=== PATIENT | female | born 1990 | race Caucasian/White ===

== ENCOUNTER 2023-07-09 19:00 | Outpatient (CLI) | payer SELFPAY | END 2023-07-09 19:01 | disposition home or self-care (01) | PROVIDERS: Visit Provider Family Medicine | DX: F29 Unspecified psychosis not due to a substance or known physiological condition (principal) | CPT/HCPCS: A0425; A0429 ==

== ENCOUNTER 2023-07-09 19:49 | Observation (INO) | payer SELFPAY ==
[2023-07-09 20:00] VITALS: BP 118/78; PULSE 95; RESP 18; TEMP 36.7; O2SAT 99; BMI 21.9
--- NOTE | 2023-07-09 20:25 | ED_ITS ---
HPI - General Adult General Chief complaint: Psychiatric Problem/Disorder <Mary Winter MD - Last Filed: 07/09/23 23:46> Stated complaint: Mental health <Mary Winter MD - Last Filed: 07/09/23 23:46> Time Seen by Provider: 07/09/23 19:57 <Mary Winter MD - Last Filed: 07/09/23 23:46> Source: patient <Mary Winter MD - Last Filed: 07/09/23 23:46> Limitations: no limitations <Mary Winter MD - Last Filed: 07/09/23 23:46> History of Present Illness HPI narrative: Patient is a 32-year-old female comes into the ER today at the request of the police in her parents after her parents called the police and told them that she had attacked them. Patient tells me that this is lie and that she came here just to ?get them off my back?. She states that no one listens to her and that she gently touched her mother when she became upset at her. She states that she has multiple relationship problems with many people and that she continues to have relationship issues with her parents who she is currently living with. She also tells me that her parents are hiding her 2 children from her. She states that she is from her and living with her parents for the time being but it is temporary. She states that she is trying to move on with her life and her parents will let her. The patient tells me that she has no medical history, takes no medications and does not use any drugs. I did ask the patient what we could do for her in the ER today, she tells me that she is unsure. I offer for her to speak to [facility], she agrees to this. She does tell me that there is no risk of her harming other people or harming herself at this time. <Mary Winter MD - Last Filed: 07/09/23 23:46> Related Data Home medications: Home Medications Medication Instructions Recorded Confirmed No Known Home Medications 07/09/23 07/09/23 <Mary Winter MD - Last Filed: 07/09/23 23:46> Allergies/adverse reactions: Allergies Allergy/AdvReac Type Severity Reaction Status Date / Time No Known Drug Allergies Allergy Verified 07/09/23 20:02 <Mary Winter MD - Last Filed: 07/09/23 23:46> Review of Systems Status of ROS: Reports: 10 or more systems reviewed and unremarkable except as noted in History and below <Mary Winter MD - Last Filed: 07/09/23 23:46> [facility] Medical History: Medical History (Updated 07/09/23 @ 23:16 by Mary Winter MD) No significant past medical history <Mary Winter MD - Last Filed: 07/09/23 23:46> Surgical History: Surgical History (Updated 07/09/23 @ 20:56 by Klever Driscoll RN) No significant past surgical history <Mary Winter MD - Last Filed: 07/09/23 23:46> Social History: Social History What is your current living situation?: declined to answer Problems where you live: declined to answer Problems where you live details: NA In the past 12 months, utilities in danger of being shut off: declined to answer In past 12 months, lack of transportation kept you from medical appts, meetings, work, or getting things needed for daily living: declined to answer In the past 12 mos, have been you worried that your food would run out before you had money to buy more?: declined to answer In the past 12 mos, the food you bought just didn't last and you didn't have money to buy more?: declined to answer Highest level of school completed/degree received: Associate degree: occupational, technical, vocational program Smoking Status: Never smoker Second hand tobacco smoke exposure: No How often do you have a drink containing alcohol: never How often do you have six or more drinks on one occasion: Never AUDIT-C Alcohol total score: 0 Non-prescribed substance use: denies use Caffeine: Yes How often does anyone, including family, friends and others, physically hurt you : decline to answer How often does anyone, including family, friends and others, insult or talk down to you: decline to answer How often does anyone, including family, friends and others, threaten you with harm: decline to answer How often does anyone, including family, friends and others, scream or curse at you: decline to answer service: No <Mary Winter MD - Last Filed: 07/09/23 23:46> Exam Narrative: Exam Narrative: Well-nourished well-developed patient in no acute distress. Alert and oriented x3. Patient's affect is slightly flat. Mood is normal. Patient takes long corby ses when she speaks and often times does not finish her thoughts. Thoughts are disorganized. She repeats herself multiple times. HEENT: Normocephalic atraumatic. Pupils are equally round reactive to light. Extraocular muscles are intact. Conjunctivae are moist without any icterus noted. Moist mucous membranes. Patient is well groomed. Cardiovascular: Heart is regular rate. Lungs: Clear to auscultation bilaterally. Abdomen: Soft and nontender nondistended with normal bowel sounds. Extremities: Bilateral lower extremities are without edema. Skin: Well perfused without any obvious rashes. <Mary Winter MD - Last Filed: 07/09/23 23:46> Const: Vital Signs, click to edit/add: Vital Signs - 24 hr 07/12/23 11:48 Temperature 98.4 F Pulse Rate [Right Pulse Oximeter] 96 Respiratory Rate 16 Blood Pressure [Ri ght Upper Arm] 113/90 H Pulse Oximetry 98 Oxygen Delivery Me thod Room Air <Mary Winter MD - Last Filed: 07/09/23 23:46> Vital Signs, click to edit/add: Vital Signs - 24 hr 07/12/23 11:48 Temperature 98.4 F Pulse Rate [Right Pulse Oximeter] 96 Respiratory Rate 16 Blood Pressure [Ri ght Upper Arm] 113/90 H Pulse Oximetry 98 Oxygen Delivery Me thod Room Air <Tucker Berry DO - Last Filed: 07/10/23 07:47> Vital Signs, click to edit/add: Vital Signs - 24 hr 07/12/23 11:48 Temperature 98.4 F Pulse Rate [Right Pulse Oximeter] 96 Respiratory Rate 16 Blood Pressure [Ri ght Upper Arm] 113/90 H Pulse Oximetry 98 Oxygen Delivery Me thod Room Air <Mary Durham MD - Last Filed: 07/10/23 15:09> Vital Signs, click to edit/add: Vital Signs - 24 hr 07/12/23 11:48 Temperature 98.4 F Pulse Rate [Right Pulse Oximeter] 96 Respiratory Rate 16 Blood Pressure [Ri ght Upper Arm] 113/90 H Pulse Oximetry 98 Oxygen Delivery Me thod Room Air <Raz Dejesus MD - Last Filed: 07/12/23 23:37> Vital Signs, click to edit/add: Vital Signs - 24 hr 07/12/23 11:48 Temperature 98.4 F Pulse Rate [Right Pulse Oximeter] 96 Respiratory Rate 16 Blood Pressure [Ri ght Upper Arm] 113/90 H Pulse Oximetry 98 Oxygen Delivery Me thod Room Air <Joe Diaz MD - Last Filed: 07/13/23 18:08> Course Course ED Course: Dec assessment was done: Per ASHWIN patient had a similar visit in April of this year at [place] when her dad brought her in to be seen for psychiatric issues, unclear of what they were, she however left before an assessment was done. During this visit: ASHWIN did speak to patient and felt that she had disorganized thoughts and paranoia. And she is exhibiting psychotic symptoms such as de lusions, thought disorganization, agitation and aggression. ASHWIN also spoke to her parents who stated that she has been declining since November, and has been refusing help. Her decision making skills do seem quite impaired. They are recommending inpatient hospitalization at this time. At this time, did go back in the room to tell the patient the plan. Patient did not understand what we were trying to communicate. She did not understand what inpatient psychiatry was. She did understand that she would be transferred to another facility. She did not seem to understand the we did not have mental health capabilities here despite multiple different explanations and ways of explaining this to her. Also despite having nursing staff also explained this to her. She seemed to just have a very difficult time processing any information. However, she remained cooperative. <Mary Winter MD - Last Filed: 07/09/23 23:46> Reevaluation(s) Time of Reevaluation #1: 13:30 <Mary Durham MD - Last Filed: 07/10/23 15:09> Reevaluation #1: Have finally been able to get into patient's room. She was requesting to speak to the doctor. Due to the volume and the acuity, I have had no capacity to see her until now. We did review that she technically has not been placed on hold but it is felt that she is holdable should she try to leave, she has been here voluntarily to this point. She and I reviewed that it is felt that she is acutely psychotic, we briefly reviewed what this meant. She does not feel that to be true. She states she is said basically nothing here. I reviewed with her that perhaps she does need to expound on her symptoms and issues, I can have the telehealth really evaluate. She did not want to do that, stated that was completely uncomfortable yesterday. She did not like the computer, cannot really tell me why, does not answer me exactly why she did not want to do that. I reviewed with her that I have no in person way to be able to interview her for this. She did go on and move into a talking about how she would never go out of the house in the clothing she is, has not showered or bathed. I had to redirect her, unfortunately I need to keep seeing patients in the ER in do have many to take care of. I will reorder the telehealth and see if they have any different assessment today. I have encouraged her to work with the interviewer. <Mary Durham MD - Last Filed: 07/10/23 15:09> Reevaluation #2: 1700 on 07/10. Dr. Dejesus assumed care from Dr. Kasey forman at shift change. I re-evaluated the patient with her nurse Carin. Had approximately 30 minute conversation with the patient in her room. Patient was brought in by EMS yesterday apparently after having a verbal altercation with also possibly with some physical shopping and aggressive behavior with her father and her parents. She has been evaluated by [facility] and thought to be disorganized. She is holdable but has not been formally placed onto a 72 hour hold. [facility] is looking for an appropriate inpatient mental health facility. Unfortunately there have been no open beds yesterday, overnight, and so far through today. I re-evaluated the patient. She had a lot of questions about her care and what her options are. She was questioning whether not she is really on a hold. She also wonders if it is real ?right? for her to be here. She thinks her parents are truly at fault for what happened yesterday. She is well dressed and well groomed. Eyes are bright. Eye contact is appropriate. She says she is not having thoughts of suicide or self-harm. No hallucinations. Her thought process seemed very disorganized. When I ask her a simple question, ?what happened yesterday??? she is really not able to explain what happened. She starts talking about how she walked in and told her parents that she could not deal with it a name or. She then says that her father was showering. She does says there has been a lot of lies in the seat. She then says that there are issues that she will talk about. She has a long pause and looks away. She then says that she wanted know where her children were. She has a 5-year-old and a 13-year-old. She is very disorganized. She seems to be having tangential thoughts and almost flight of ideas. It is difficult to hold a cogent conversation with her. Although at spoke with her for about 30 minutes I am still not able to get a clear a sequence of events about what happened yesterday. I am also unable to determine why she is living with her parents or who does have custody of her children. She is just not able to think clearly enough to explain the events of her life for what happened yesterday. It is unclear whether she is pausing to intentionally withhold information or if her thoughts are just very tangential. I suspect disorganized thoughts. Speech is fluent. Enunciation is clear. She is not able to describe to me what her previous mental health diagnoses were. It sounds like she has had a lot of interactions with dental providers in the past, but she can not give me any information about that. She says that she would only feel comfortable talking to someone that she agrees with. She seems paranoid and guarded. I re-evaluated the situation. Her 72 hour hold form had been signed by Dr. Winter yesterday but not formally completed. Therefore does not look like she is legally/properly on a hold. I filled out my own 72 hour hold paperwork after evaluating her and the patient was started on 72 hour hold at 1745 on 07/10/2023. Based on my interaction with the patient she is having a mental health crisis. Her thoughts are very disorganized. She is paranoid and guarded. Although she is not physically aggressive here, she does not seem to be thinking clearly enough where she would be able to manage her affairs at home, care for herself. I think you be highly likely that sending her home with her parents would lead to more physical alterations and risk for further violence. <Raz Dejesus MD - Last Filed: 07/12/23 23:37> Reevaluation #3: Dr. Dejesus assumed care of this patient on a at 8:00 a.m. on 07/12. She remained stable on the day shift. Still with some disorganized thinking. No violent or aggressive behavior. She has been decline for admission at the [facility]. No open mental health beds in the [facility] that meet her needs. As she has been here in the ER now almost 70 hours, we have made arrangements with our hospitalist, Dr. Wood, to admit under obstetrics on the floor so that she can not board in a more quiet environment with a window in her own private bathroom. She remains on hold. She still will require likely transfer for inpatient mental health treatment. <Raz Dejesus MD - Last Filed: 07/12/23 23:37> Consultations Consultation #1: Tyrel completed his repeat telehealth evaluation. He thinks that she has possibly had a psychotic break. She is confused. He asked her multiple times during his interaction with her what she would like to have happen today and he could not get an answer from her. He recognized thought blocking, disorganized thinking and things are just not making sense to her. To me looking back in my conversation, it really seem like she isn't processing what I was saying. Dr. Berry whom covered overnight basically said the same thing, she was not able to take in any of the information or understand any of the information he was telling her. It is still recommended that she go inpatient. Tyrel noted patient to be suspicious and have paranoia as well. <Mary Durham MD - Last Filed: 07/10/23 15:09> Time: 15:05 <Mary Durham MD - Last Filed: 07/10/23 15:09> Vital Signs Vital signs: Initial Vital Signs Temperature 98.0 F 07/09/23 20:00 Temperature Source Temporal Artery Scan 07/09/23 20:00 Pulse Rate 95 07/09/23 20:00 Respiratory Rate 18 07/09/23 20:00 Blood Pressure 118/78 07/09/23 20:00 Blood Pressure Mean 91 07/09/23 20:00 Blood Pressure Position Sitting 07/09/23 20:00 Pulse Oximetry 99 07/09/23 20:00 Oxygen Delivery Method Room Air 07/09/23 20:00 Vital Signs Temperature 98.0 F 07/09/23 20:00 Pulse Rate 95 07/09/23 20:00 Respiratory Rate 18 07/09/23 20:00 Blood Pressure 118/78 07/09/23 20:00 Pulse Oximetry 99 07/09/23 20:00 Oxygen Delivery Method Room Air 07/09/23 20:00 Temperature 98.0 F 07/13/23 08:10 Pulse Rate 94 07/13/23 08:10 Respiratory Rate 18 07/13/23 08:10 Blood Pressure 124/94 H 07/13/23 08:10 Pulse Oximetry 97 07/13/23 08:10 Oxygen Delivery Method Room Air 07/13/23 08:10 <Mary Winter MD - Last Filed: 07/09/23 23:46> Initial Vital Signs Temperature 98.0 F 07/09/23 20:00 Temperature Source Temporal Artery Scan 07/09/23 20:00 Pulse Rate 95 07/09/23 20:00 Respiratory Rate 18 07/09/23 20:00 Blood Pressure 118/78 07/09/23 20:00 Blood Pressure Mean 91 07/09/23 20:00 Blood Pressure Position Sitting 07/09/23 20:00 Pulse Oximetry 99 07/09/23 20:00 Oxygen Delivery Method Room Air 07/09/23 20:00 Vital Signs Temperature 98.0 F 07/09/23 20:00 Pulse Rate 95 07/09/23 20:00 Respiratory Rate 18 07/09/23 20:00 Blood Pressure 118/78 07/09/23 20:00 Pulse Oximetry 99 07/09/23 20:00 Oxygen Delivery Method Room Air 07/09/23 20:00 Temperature 98.0 F 07/13/23 08:10 Pulse Rate 94 07/13/23 08:10 Respiratory Rate 18 07/13/23 08:10 Blood Pressure 124/94 H 07/13/23 08:10 Pulse Oximetry 97 07/13/23 08:10 Oxygen Delivery Method Room Air 07/13/23 08:10 <Tucker Berry DO - Last Filed: 07/10/23 07:47> Initial Vital Signs Temperature 98.0 F 07/09/23 20:00 Temperature Source Temporal Artery Scan 07/09/23 20:00 Pulse Rate 95 07/09/23 20:00 Respiratory Rate 18 07/09/23 20:00 Blood Pressure 118/78 07/09/23 20:00 Blood Pressure Mean 91 07/09/23 20:00 Blood Pressure Position Sitting 07/09/23 20:00 Pulse Oximetry 99 07/09/23 20:00 Oxygen Delivery Method Room Air 07/09/23 20:00 Vital Signs Temperature 98.0 F 07/09/23 20:00 Pulse Rate 95 07/09/23 20:00 Respiratory Rate 18 07/09/23 20:00 Blood Pressure 118/78 07/09/23 20:00 Pulse Oximetry 99 07/09/23 20:00 Oxygen Delivery Method Room Air 07/09/23 20:00 Temperature 98.0 F 07/13/23 08:10 Pulse Rate 94 07/13/23 08:10 Respiratory Rate 18 07/13/23 08:10 Blood Pressure 124/94 H 07/13/23 08:10 Pulse Oximetry 97 07/13/23 08:10 Oxygen Delivery Method Room Air 07/13/23 08:10 <Mary Durham MD - Last Filed: 07/10/23 15:09> Initial Vital Signs Temperature 98.0 F 07/09/23 20:00 Temperature Source Temporal Artery Scan 07/09/23 20:00 Pulse Rate 95 07/09/23 20:00 Respiratory Rate 18 07/09/23 20:00 Blood Pressure 118/78 07/09/23 20:00 Blood Pressure Mean 91 07/09/23 20:00 Blood Pressure Position Sitting 07/09/23 20:00 Pulse Oximetry 99 07/09/23 20:00 Oxygen Delivery Method Room Air 07/09/23 20:00 Vital Signs Temperature 98.0 F 07/09/23 20:00 Pulse Rate 95 07/09/23 20:00 Respiratory Rate 18 07/09/23 20:00 Blood Pressure 118/78 07/09/23 20:00 Pulse Oximetry 99 07/09/23 20:00 Oxygen Delivery Method Room Air 07/09/23 20:00 Temperature 98.0 F 07/13/23 08:10 Pulse Rate 94 07/13/23 08:10 Respiratory Rate 18 07/13/23 08:10 Blood Pressure 124/94 H 07/13/23 08:10 Pulse Oximetry 97 07/13/23 08:10 Oxygen Delivery Method Room Air 07/13/23 08:10 <Raz Dejesus MD - Last Filed: 07/12/23 23:37> Initial Vital Signs Temperature 98.0 F 07/09/23 20:00 Temperature Source Temporal Artery Scan 07/09/23 20:00 Pulse Rate 95 07/09/23 20:00 Respiratory Rate 18 07/09/23 20:00 Blood Pressure 118/78 07/09/23 20:00 Blood Pressure Mean 91 07/09/23 20:00 Blood Pressure Position Sitting 07/09/23 20:00 Pulse Oximetry 99 07/09/23 20:00 Oxygen Delivery Method Room Air 07/09/23 20:00 Vital Signs Temperature 98.0 F 07/09/23 20:00 Pulse Rate 95 07/09/23 20:00 Respiratory Rate 18 07/09/23 20:00 Blood Pressure 118/78 07/09/23 20:00 Pulse Oximetry 99 07/09/23 20:00 Oxygen Delivery Method Room Air 07/09/23 20:00 Temperature 98.0 F 07/13/23 08:10 Pulse Rate 94 07/13/23 08:10 Respiratory Rate 18 07/13/23 08:10 Blood Pressure 124/94 H 07/13/23 08:10 Pulse Oximetry 97 07/13/23 08:10 Oxygen Delivery Method Room Air 07/13/23 08:10 <Joe Diaz MD - Last Filed: 07/13/23 18:08> Medical Decision Making MDM Narrative Medical decision making narrative: 32-year-old female with paranoia, disorganized thoughts, psychosis. Pat ient will be transferred to inpatient psychiatric facility. <Mary Winter MD - Last Filed: 07/09/23 23:46> Patient was signed out to me pending transfer acceptance. By the end of my shift we have been unable to place her. We will continue to try in the morning. I did have to speak to her again during the night. She still is not understanding what is going on despite multiple attempts to explain it to her. <Tucker Berry DO - Last Filed: 07/10/23 07:47> Patient was signed out to me pending transfer acceptance. By the end of my shift we have been unable to place her. We will continue to try in the morning. I did have to speak to her again during the night. She still is not understanding what is going on despite multiple attempts to explain it to her. 07/11 ARISTEO --did go to visit with Ms. Galvin. She is very calm. Does have questions about the process here. Expresses concern that her story is not communicated accurately from provider to provider given the dizziness and the number of the people that are attending to her. Gently says that the message often seems unclear. She does not want to be accusatory and does not like conflict she notes. She may like to speak with patient advocate at some point to help her through the process here. She says has she had numerous questions that have since eval braided. She is given some paper and the [place] implements. She would like to return home to get a number of things that would be helpful in helping happen. She is concerned about having to do things that she may not be in agreement with. All of this is expressed thoughtfully, haltingly, partially. Given a blanket. Does not appear to need medication for anything at this time. <Joe Diaz MD - Last Filed: 07/13/23 18:08> Lab Data Labs: Lab Results 07/09/23 07/09/23 07/09/23 Range/Units 23:04 23:05 23:54 WBC 12.41 H (4.50-11.00) K/uL RBC 4.25 (4.00-5.20) m/uL Hgb 13.6 (12.0-16.0) gm/dL Hct 41.2 (33.0-51.0) % MCV 97 (80-100) fL MCH 32 (26-34) pg MCHC 33 (32-36) gm/dL RDW Coeff of Alexandra 11.9 (11.5-15.5) % Plt Count 272 (140-440) K/uL Neut % (Auto) 78.3 H (42.0-72.0) % Lymph % (Auto) 14.5 L (20-44) % [place] % (Auto) 6.0 (0.0-11.0) % Eos % (Auto) 0.0 (0.0-7.0) % Baso % (Auto) 0.5 (0.0-3.0) % Neut # (Auto) 9.70 H (1.7-7.0) K/uL Lymph # (Auto) 1.80 (0.90-2.90) K/uL [place] # (Auto) 0.70 (0.00-0.90) K/UL Eos # (Auto) 0.00 (0.00-0.50) K/uL Baso # (Auto) 0.10 (0.00-0.30) K/uL Abs Immat Gran (auto) 0.10 (0.00-0.30) K/uL Imm/Tot Granulo (auto) 0.7 % Sodium 139 (135-149) mmol/L Potassium 3.4 L (3.6-5.1) mmol/L Chloride 103 (96-114) mmol/L Carbon Dioxide 25 (20-32) mmol/L Anion Gap 11 (7-15) mEq/L BUN 8 (5-24) mg/dL Creatinine 0.5 (0.5-1.5) mg/dL Estimated Creat Clear 125.39 Estimated GFR 126 ml/min Glucose 96 (60-115) mg/dL Calcium 9.2 (8.4-10.6) mg/dL Total Bilirubin 1.3 (0.1-1.5) mg/dL Direct Bilirubin 0.0 (0.0-0.5) mg/dL AST 31 (12-35) U/L ALT 18 (4-35) U/L Alkaline Phosphatase 51 (40-150) U/L Total Protein 8.3 (6.0-8.3) g/dL Albumin 5.0 (3.3-5.0) g/dL TSH 5.450 H (0.270-4.20) uIU/mL Urine Color Yellow (Yellow) Urine Appearance Clear (Clear) Urine pH 6.0 (5.0-8.5) Ur Specific [place] >= 1.030 (1.000-1.030) Urine Protein Trace A (Negative) Urine Glucose (UA) Negative (Negative) Urine Ketones 3+ A (Negative) Urine Blood Negative (Negative) Urine Nitrite Negative (Negative) Urine Bilirubin Negative (Negative) Urine Urobilinogen 0.2 (0.2-1.0) Ur Leukocyte Esterase Negative (Negative) Urine RBC 2-5 A (0-2) Urine WBC 2-5 (0-5) Ur Squamous Epith Cells Many A (None-Few) Amorphous Sediment Moderate A (None) Urine Bacteria Many A (None) Urine Mucus Moderate A (None) Urine HCG, Qual Negative (Negative) Salicylates < 1.0 L (1.0-10) mg/dL Urine Opiates Screen Negative (Negative) Ur Oxycodone Screen Negative (Negative) Urine Methadone Screen Negative (Negative) Ur Propoxyphene Screen Negative (Negative) Acetaminophen < 10.0 L (10.0-30.0) ug/mL Ur Barbiturates Screen Negative (Negative) U Tricyclic Antidepress Negative (Negative) Ur Phencyclidine Scrn Negative (Negative) Ur Amphetamines Screen Negative (Negative) U Methamphetamines Scrn Negative (Negative) U Benzodiazepines Scrn Negative (Negative) Urine Cocaine Screen Negative (Negative) U Marijuana (THC) Screen Negative (Negative) Ur Drug Screen Comment See Note Ethyl Alcohol < 0.01 L (0.01-0.03) % SARS-CoV-2 (PCR) Negative SARS-CoV-2 (Negative) <Mary Winter MD - Last Filed: 07/09/23 23:46> Lab Results 07/09/23 07/09/23 07/09/23 Range/Units 23:04 23:05 23:54 WBC 12.41 H (4.50-11.00) K/uL RBC 4.25 (4.00-5.20) m/uL Hgb 13.6 (12.0-16.0) gm/dL Hct 41.2 (33.0-51.0) % MCV 97 (80-100) fL MCH 32 (26-34) pg MCHC 33 (32-36) gm/dL RDW Coeff of Alexandra 11.9 (11.5-15.5) % Plt Count 272 (140-440) K/uL Neut % (Auto) 78.3 H (42.0-72.0) % Lymph % (Auto) 14.5 L (20-44) % [place] % (Auto) 6.0 (0.0-11.0) % Eos % (Auto) 0.0 (0.0-7.0) % Baso % (Auto) 0.5 (0.0-3.0) % Neut # (Auto) 9.70 H (1.7-7.0) K/uL Lymph # (Auto) 1.80 (0.90-2.90) K/uL [place] # (Auto) 0.70 (0.00-0.90) K/UL Eos # (Auto) 0.00 (0.00-0.50) K/uL Baso # (Auto) 0.10 (0.00-0.30) K/uL Abs Immat Gran (auto) 0.10 (0.00-0.30) K/uL Imm/Tot Granulo (auto) 0.7 % Sodium 139 (135-149) mmol/L Potassium 3.4 L (3.6-5.1) mmol/L Chloride 103 (96-114) mmol/L Carbon Dioxide 25 (20-32) mmol/L Anion Gap 11 (7-15) mEq/L BUN 8 (5-24) mg/dL Creatinine 0.5 (0.5-1.5) mg/dL Estimated Creat Clear 125.39 Estimated GFR 126 ml/min Glucose 96 (60-115) mg/dL Calcium 9.2 (8.4-10.6) mg/dL Total Bilirubin 1.3 (0.1-1.5) mg/dL Direct Bilirubin 0.0 (0.0-0.5) mg/dL AST 31 (12-35) U/L ALT 18 (4-35) U/L Alkaline Phosphatase 51 (40-150) U/L Total Protein 8.3 (6.0-8.3) g/dL Albumin 5.0 (3.3-5.0) g/dL TSH 5.450 H (0.270-4.20) uIU/mL Urine Color Yellow (Yellow) Urine Appearance Clear (Clear) Urine pH 6.0 (5.0-8.5) Ur Specific [place] >= 1.030 (1.000-1.030) Urine Protein Trace A (Negative) Urine Glucose (UA) Negative (Negative) Urine Ketones 3+ A (Negative) Urine Blood Negative (Negative) Urine Nitrite Negative (Negative) Urine Bilirubin Negative (Negative) Urine Urobilinogen 0.2 (0.2-1.0) Ur Leukocyte Esterase Negative (Negative) Urine RBC 2-5 A (0-2) Urine WBC 2-5 (0-5) Ur Squamous Epith Cells Many A (None-Few) Amorphous Sediment Moderate A (None) Urine Bacteria Many A (None) Urine Mucus Moderate A (None) Urine HCG, Qual Negative (Negative) Salicylates < 1.0 L (1.0-10) mg/dL Urine Opiates Screen Negative (Negative) Ur Oxycodone Screen Negative (Negative) Urine Methadone Screen Negative (Negative) Ur Propoxyphene Screen Negative (Negative) Acetaminophen < 10.0 L (10.0-30.0) ug/mL Ur Barbiturates Screen Negative (Negative) U Tricyclic Antidepress Negative (Negative) Ur Phencyclidine Scrn Negative (Negative) Ur Amphetamines Screen Negative (Negative) U Methamphetamines Scrn Negative (Negative) U Benzodiazepines Scrn Negative (Negative) Urine Cocaine Screen Negative (Negative) U Marijuana (THC) Screen Negative (Negative) Ur Drug Screen Comment See Note Ethyl Alcohol < 0.01 L (0.01-0.03) % SARS-CoV-2 (PCR) Negative SARS-CoV-2 (Negative) <Tucker Berry, DO - Last Filed: 07/10/23 07:47> Lab Results 07/09/23 07/09/23 07/09/23 Range/Units 23:04 23:05 23:54 WBC 12.41 H (4.50-11.00) K/uL RBC 4.25 (4.00-5.20) m/uL Hgb 13.6 (12.0-16.0) gm/dL Hct 41.2 (33.0-51.0) % MCV 97 (80-100) fL MCH 32 (26-34) pg MCHC 33 (32-36) gm/dL RDW Coeff of Alexandra 11.9 (11.5-15.5) % Plt Count 272 (140-440) K/uL Neut % (Auto) 78.3 H (42.0-72.0) % Lymph % (Auto) 14.5 L (20-44) % [place] % (Auto) 6.0 (0.0-11.0) % Eos % (Auto) 0.0 (0.0-7.0) % Baso % (Auto) 0.5 (0.0-3.0) % Neut # (Auto) 9.70 H (1.7-7.0) K/uL Lymph # (Auto) 1.80 (0.90-2.90) K/uL [place] # (Auto) 0.70 (0.00-0.90) K/UL Eos # (Auto) 0.00 (0.00-0.50) K/uL Baso # (Auto) 0.10 (0.00-0.30) K/uL Abs Immat Gran (auto) 0.10 (0.00-0.30) K/uL Imm/Tot Granulo (auto) 0.7 % Sodium 139 (135-149) mmol/L Potassium 3.4 L (3.6-5.1) mmol/L Chloride 103 (96-114) mmol/L Carbon Dioxide 25 (20-32) mmol/L Anion Gap 11 (7-15) mEq/L BUN 8 (5-24) mg/dL Creatinine 0.5 (0.5-1.5) mg/dL Estimated Creat Clear 125.39 Estimated GFR 126 ml/min Glucose 96 (60-115) mg/dL Calcium 9.2 (8.4-10.6) mg/dL Total Bilirubin 1.3 (0.1-1.5) mg/dL Direct Bilirubin 0.0 (0.0-0.5) mg/dL AST 31 (12-35) U/L ALT 18 (4-35) U/L Alkaline Phosphatase 51 (40-150) U/L Total Protein 8.3 (6.0-8.3) g/dL Albumin 5.0 (3.3-5.0) g/dL TSH 5.450 H (0.270-4.20) uIU/mL Urine Color Yellow (Yellow) Urine Appearance Clear (Clear) Urine pH 6.0 (5.0-8.5) Ur Specific [place] >= 1.030 (1.000-1.030) Urine Protein Trace A (Negative) Urine Glucose (UA) Negative (Negative) Urine Ketones 3+ A (Negative) Urine Blood Negative (Negative) Urine Nitrite Negative (Negative) Urine Bilirubin Negative (Negative) Urine Urobilinogen 0.2 (0.2-1.0) Ur Leukocyte Esterase Negative (Negative) Urine RBC 2-5 A (0-2) Urine WBC 2-5 (0-5) Ur Squamous Epith Cells Many A (None-Few) Amorphous Sediment Moderate A (None) Urine Bacteria Many A (None) Urine Mucus Moderate A (None) Urine HCG, Qual Negative (Negative) Salicylates < 1.0 L (1.0-10) mg/dL Urine Opiates Screen Negative (Negative) Ur Oxycodone Screen Negative (Negative) Urine Methadone Screen Negative (Negative) Ur Propoxyphene Screen Negative (Negative) Acetaminophen < 10.0 L (10.0-30.0) ug/mL Ur Barbiturates Screen Negative (Negative) U Tricyclic Antidepress Negative (Negative) Ur Phencyclidine Scrn Negative (Negative) Ur Amphetamines Screen Negative (Negative) U Methamphetamines Scrn Negative (Negative) U Benzodiazepines Scrn Negative (Negative) Urine Cocaine Screen Negative (Negative) U Marijuana (THC) Screen Negative (Negative) Ur Drug Screen Comment See Note Ethyl Alcohol < 0.01 L (0.01-0.03) % SARS-CoV-2 (PCR) Negative SARS-CoV-2 (Negative) <Mary Durham MD - Last Filed: 07/10/23 15:09> Lab Results 07/09/23 07/09/23 07/09/23 Range/Units 23:04 23:05 23:54 WBC 12.41 H (4.50-11.00) K/uL RBC 4.25 (4.00-5.20) m/uL Hgb 13.6 (12.0-16.0) gm/dL Hct 41.2 (33.0-51.0) % MCV 97 (80-100) fL MCH 32 (26-34) pg MCHC 33 (32-36) gm/dL RDW Coeff of Alexandra 11.9 (11.5-15.5) % Plt Count 272 (140-440) K/uL Neut % (Auto) 78.3 H (42.0-72.0) % Lymph % (Auto) 14.5 L (20-44) % [place] % (Auto) 6.0 (0.0-11.0) % Eos % (Auto) 0.0 (0.0-7.0) % Baso % (Auto) 0.5 (0.0-3.0) % Neut # (Auto) 9.70 H (1.7-7.0) K/uL Lymph # (Auto) 1.80 (0.90-2.90) K/uL [place] # (Auto) 0.70 (0.00-0.90) K/UL Eos # (Auto) 0.00 (0.00-0.50) K/uL Baso # (Auto) 0.10 (0.00-0.30) K/uL Abs Immat Gran (auto) 0.10 (0.00-0.30) K/uL Imm/Tot Granulo (auto) 0.7 % Sodium 139 (135-149) mmol/L Potassium 3.4 L (3.6-5.1) mmol/L Chloride 103 (96-114) mmol/L Carbon Dioxide 25 (20-32) mmol/L Anion Gap 11 (7-15) mEq/L BUN 8 (5-24) mg/dL Creatinine 0.5 (0.5-1.5) mg/dL Estimated Creat Clear 125.39 Estimated GFR 126 ml/min Glucose 96 (60-115) mg/dL Calcium 9.2 (8.4-10.6) mg/dL Total Bilirubin 1.3 (0.1-1.5) mg/dL Direct Bilirubin 0.0 (0.0-0.5) mg/dL AST 31 (12-35) U/L ALT 18 (4-35) U/L Alkaline Phosphatase 51 (40-150) U/L Total Protein 8.3 (6.0-8.3) g/dL Albumin 5.0 (3.3-5.0) g/dL TSH 5.450 H (0.270-4.20) uIU/mL Urine Color Yellow (Yellow) Urine Appearance Clear (Clear) Urine pH 6.0 (5.0-8.5) Ur Specific [place] >= 1.030 (1.000-1.030) Urine Protein Trace A (Negative) Urine Glucose (UA) Negative (Negative) Urine Ketones 3+ A (Negative) Urine Blood Negative (Negative) Urine Nitrite Negative (Negative) Urine Bilirubin Negative (Negative) Urine Urobilinogen 0.2 (0.2-1.0) Ur Leukocyte Esterase Negative (Negative) Urine RBC 2-5 A (0-2) Urine WBC 2-5 (0-5) Ur Squamous Epith Cells Many A (None-Few) Amorphous Sediment Moderate A (None) Urine Bacteria Many A (None) Urine Mucus Moderate A (None) Urine HCG, Qual Negative (Negative) Salicylates < 1.0 L (1.0-10) mg/dL Urine Opiates Screen Negative (Negative) Ur Oxycodone Screen Negative (Negative) Urine Methadone Screen Negative (Negative) Ur Propoxyphene Screen Negative (Negative) Acetaminophen < 10.0 L (10.0-30.0) ug/mL Ur Barbiturates Screen Negative (Negative) U Tricyclic Antidepress Negative (Negative) Ur Phencyclidine Scrn Negative (Negative) Ur Amphetamines Screen Negative (Negative) U Methamphetamines Scrn Negative (Negative) U Benzodiazepines Scrn Negative (Negative) Urine Cocaine Screen Negative (Negative) U Marijuana (THC) Screen Negative (Negative) Ur Drug Screen Comment See Note Ethyl Alcohol < 0.01 L (0.01-0.03) % SARS-CoV-2 (PCR) Negative SARS-CoV-2 (Negative) <Raz Dejesus MD - Last Filed: 07/12/23 23:37> Lab Results 07/09/23 07/09/23 07/09/23 Range/Units 23:04 23:05 23:54 WBC 12.41 H (4.50-11.00) K/uL RBC 4.25 (4.00-5.20) m/uL Hgb 13.6 (12.0-16.0) gm/dL Hct 41.2 (33.0-51.0) % MCV 97 (80-100) fL MCH 32 (26-34) pg MCHC 33 (32-36) gm/dL RDW Coeff of Alexandra 11.9 (11.5-15.5) % Plt Count 272 (140-440) K/uL Neut % (Auto) 78.3 H (42.0-72.0) % Lymph % (Auto) 14.5 L (20-44) % [place] % (Auto) 6.0 (0.0-11.0) % Eos % (Auto) 0.0 (0.0-7.0) % Baso % (Auto) 0.5 (0.0-3.0) % Neut # (Auto) 9.70 H (1.7-7.0) K/uL Lymph # (Auto) 1.80 (0.90-2.90) K/uL [place] # (Auto) 0.70 (0.00-0.90) K/UL Eos # (Auto) 0.00 (0.00-0.50) K/uL Baso # (Auto) 0.10 (0.00-0.30) K/uL Abs Immat Gran (auto) 0.10 (0.00-0.30) K/uL Imm/Tot Granulo (auto) 0.7 % Sodium 139 (135-149) mmol/L Potassium 3.4 L (3.6-5.1) mmol/L Chloride 103 (96-114) mmol/L Carbon Dioxide 25 (20-32) mmol/L Anion Gap 11 (7-15) mEq/L BUN 8 (5-24) mg/dL Creatinine 0.5 (0.5-1.5) mg/dL Estimated Creat Clear 125.39 Estimated GFR 126 ml/min Glucose 96 (60-115) mg/dL Calcium 9.2 (8.4-10.6) mg/dL Total Bilirubin 1.3 (0.1-1.5) mg/dL Direct Bilirubin 0.0 (0.0-0.5) mg/dL AST 31 (12-35) U/L ALT 18 (4-35) U/L Alkaline Phosphatase 51 (40-150) U/L Total Protein 8.3 (6.0-8.3) g/dL Albumin 5.0 (3.3-5.0) g/dL TSH 5.450 H (0.270-4.20) uIU/mL Urine Color Yellow (Yellow) Urine Appearance Clear (Clear) Urine pH 6.0 (5.0-8.5) Ur Specific [place] >= 1.030 (1.000-1.030) Urine Protein Trace A (Negative) Urine Glucose (UA) Negative (Negative) Urine Ketones 3+ A (Negative) Urine Blood Negative (Negative) Urine Nitrite Negative (Negative) Urine Bilirubin Negative (Negative) Urine Urobilinogen 0.2 (0.2-1.0) Ur Leukocyte Esterase Negative (Negative) Urine RBC 2-5 A (0-2) Urine WBC 2-5 (0-5) Ur Squamous Epith Cells Many A (None-Few) Amorphous Sediment Moderate A (None) Urine Bacteria Many A (None) Urine Mucus Moderate A (None) Urine HCG, Qual Negative (Negative) Salicylates < 1.0 L (1.0-10) mg/dL Urine Opiates Screen Negative (Negative) Ur Oxycodone Screen Negative (Negative) Urine Methadone Screen Negative (Negative) Ur Propoxyphene Screen Negative (Negative) Acetaminophen < 10.0 L (10.0-30.0) ug/mL Ur Barbiturates Screen Negative (Negative) U Tricyclic Antidepress Negative (Negative) Ur Phencyclidine Scrn Negative (Negative) Ur Amphetamines Screen Negative (Negative) U Methamphetamines Scrn Negative (Negative) U Benzodiazepines Scrn Negative (Negative) Urine Cocaine Screen Negative (Negative) U Marijuana (THC) Screen Negative (Negative) Ur Drug Screen Comment See Note Ethyl Alcohol < 0.01 L (0.01-0.03) % SARS-CoV-2 (PCR) Negative SARS-CoV-2 (Negative) <Joe Diaz MD - Last Filed: 07/13/23 18:08> Discharge Plan Discharge Clinical Impression: Acute psychosis <Mary Winter MD - Last Filed: 07/09/23 23:46> Patient Disposition: Admitted As Observation <Mary Winter MD - Last Filed: 07/09/23 23:46> Discharge Location: [facility] <Mary Winter MD - Last Filed: 07/09/23 23:46> Condition: Stable <Mary Winter MD - Last Filed: 07/09/23 23:46> Activity Level: No Restrictions <Mary Winter MD - Last Filed: 07/09/23 23:46> No Restrictions <Tucker Berry DO - Last Filed: 07/10/23 07:47> No Restrictions <Mary Durham MD - Last Filed: 07/10/23 15:09> No Restrictions <Raz Dejesus MD - Last Filed: 07/12/23 23:37> No Restrictions <Joe Diaz MD - Last Filed: 07/13/23 18:08> Discharge Diet: Regular <Mary Winter MD - Last Filed: 07/09/23 23:46> Regular <Tucker Berry DO - Last Filed: 07/10/23 07:47> Regular <Mary Durham MD - Last Filed: 07/10/23 15:09> Regular <Raz Dejesus MD - Last Filed: 07/12/23 23:37> Regular <Joe Diaz MD - Last Filed: 07/13/23 18:08>
[2023-07-09 23:44] VITALS: BP 115/70; PULSE 89; RESP 18; TEMP 36.8; O2SAT 99
[2023-07-09 23:46] LABS: Appearance Urine Clear (Clear); Bilirubin Urine Negative (Negative); Blood Urine Negative (Negative); Color Urine Yellow (Yellow); Glucose Urine Negative (Negative); Ketones Urine 3+ (Negative); Leukocyte Esterase Urine Negative (Negative); Nitrite Urine Negative (Negative); Protein Urine Trace (Negative); Specific Gravity Urine >= 1.030 (1.000-1.030); Urobilinogen Urine 0.2 (0.2-1.0)
[2023-07-09 23:55] LABS: Amphetamine Screen Urine Negative (Negative); Barbiturate Screen Urine Negative (Negative); Benzodiazepines Screen Urine Negative (Negative); Cannabinoid Screen Urine Negative (Negative); Cocaine Screen Urine Negative (Negative); Methadone Screen Urine Negative (Negative); Methamphetamines Screen Urine Negative (Negative); Opiate Screen Urine Negative (Negative); Oxycodone Screen Urine Negative (Negative); Phencyclidine Screen Urine Negative (Negative); Tricyclic Antidepressant Urine Negative (Negative)
[2023-07-09 23:59] LABS: Basophils Percent Auto 0.5 % (0.0-3.0); Hematocrit 41.2 % (33.0-51.0); Hemoglobin* 13.6 gm/dL (12.0-16.0); Immature Granulocytes Pct Auto 0.7 %; Lymphocytes Percent Auto 14.5 % (20-44); Mean Corpuscular HGB Conc 33 gm/dL (32-36); Mean Corpuscular Hemoglobin 32 pg (26-34); Mean Corpuscular Volume 97 fL (80-100); Neutrophils Percent Auto 78.3 % (42.0-72.0); Platelet Count* 272 K/uL (140-440); RDW Coefficient of Variation % 11.9 % (11.5-15.5); Red Blood Count 4.25 m/uL (4.00-5.20); White Blood Count* 12.41 K/uL (4.50-11.00)
[2023-07-10 00:06] LABS: Slide Review Reflex No
[2023-07-10 00:15] LABS: Chloride* 103 mmol/L (96-114)
[2023-07-10 00:16] LABS: Sodium* 139 mmol/L (135-149)
[2023-07-10 00:17] LABS: Potassium* 3.4 mmol/L (3.6-5.1)
[2023-07-10 00:18] LABS: Creatinine* 0.5 mg/dL (0.5-1.5); Est. Creatinine Clearance* 125.39; Estimated Glomerular Filt Rate 126 ml/min
[2023-07-10 00:19] LABS: Alanine Aminotransferase* 18 U/L (4-35); Alkaline Phosphatase* 51 U/L (40-150); Anion Gap 11 mEq/L (7-15); Aspartate Amino Transferase* 31 U/L (12-35); Bilirubin Total* 1.3 mg/dL (0.1-1.5); Blood Urea Nitrogen* 8 mg/dL (5-24); Carbon Dioxide* 25 mmol/L (20-32); Glucose* 96 mg/dL (60-115); Total Protein* 8.3 g/dL (6.0-8.3)
[2023-07-10 00:20] LABS: Calcium* 9.2 mg/dL (8.4-10.6)
[2023-07-10 00:29] LABS: Acetaminophen* < 10.0 ug/mL (10.0-30.0); Ethanol* < 0.01 % (0.01-0.03); Salicylate* < 1.0 mg/dL (1.0-10)
[2023-07-10 00:31] LABS: Amorphous Sediment Urine Moderate; Bacteria Urine Many; Mucus Urine Moderate; Squamous Epithelial Cell Urine Many (None-Few); Ur HCG Qualitative* Negative (Negative)
[2023-07-10 00:38] LABS: SARS PCR* Negative SARS-CoV-2 (Negative)
[2023-07-10 01:45] VITALS: TEMP 36.8
[2023-07-10] MEDS: ACETAMINOPHEN 500 MG TABLET 1000 MG PO (01:45)
--- NOTE | 2023-07-10 02:10 | ED.NURSE ---
pt. cooperative. laying in bed. monitored via camera per protocol. vitals stable. placement pending.
[2023-07-10 05:26] VITALS: BP 112/68; PULSE 85; RESP 18; TEMP 36.8; O2SAT 99
--- NOTE | 2023-07-10 07:53 | ED.NURSE ---
continues to sleep
--- NOTE | 2023-07-10 09:55 | ED.NURSE ---
continues sleeping, awaken to offer food and fluids. ordered
--- NOTE | 2023-07-10 13:23 | PC.SOCIAL ---
Addendum entered by Chapis Albarran LCSW 07/10/23 16:18: Update: [facility] declined patient due to acuity [facility] still accessing patient Social work to continue looking for placement tomorrow 07/11. Addendum entered by Chapis Albarran LCSW 07/10/23 14:22: [facility] -Declined due to acuity Original Note: Discharge Planning: Social work calling for placement for patient. Called patient's mother and explained (most likely)lengthy process for finding a facility with an opening that would accept her. Informed mother that this marine underwriter would be update her. The following facilities have been contacted will the following results: 1. [facility]- [place]- No only takes up to age 26 2. [facility] [place] intake No - at capacity 3. [facility]- Faxed - NO reaccessed patient and still feel she lacks acuity for inpatient 4. [facility] [phone] Pat Faxed Have some beds -are currently accessing 5. [facility]- Faxed to [phone] currently accessing Social work to follow up as needed
[2023-07-10 13:41] VITALS: BP 119/77; PULSE 103; RESP 16; O2SAT 94
--- NOTE | 2023-07-10 15:07 | ED.NURSE ---
Pt's second DEC assessment is complete and pt is eating her lunch at this time.
--- NOTE | 2023-07-10 18:14 | ED.NURSE ---
Mom called to ask about daughter's care (pt). Patient is requesting mom and dad do not know her personal information. Mom in agreement with this request Mom has been a med/surg nurse for 30 years and understands HIPPA. Mom just called to relay info that daughter has had three deaths in the family within a year. Her [id number] by suicide, her cousin was in a motorcycle crash and her Aunt suddenly of vasculitis. Pt was particularly close to all three of these family members. Mom also would like to state that left her daughter (pt) after several years of marriage and left her with nothing. Mom thinks that all of these issues have compounded into something more than just depression and she feels her thoughts are very scattered. This nurse states she will pass this info along to doctor.
[2023-07-10 22:03] VITALS: BP 102/65; PULSE 104; TEMP 37.2; O2SAT 96
[2023-07-11 06:36] VITALS: BP 111/74; PULSE 89; RESP 16; TEMP 36.9; O2SAT 96
--- NOTE | 2023-07-11 09:07 | ED.NURSE ---
Offered to take patient for a shower. Patient thought on this for a while but decided she would not shower at this time. Was offered a meal, patient reports not feeling hungry but requests only tea and coffee.
--- NOTE | 2023-07-11 09:10 | PC.SOCIAL ---
Discharge Planning: [facility] declined patient due to aggression. Social work to follow up as needed.
--- NOTE | 2023-07-11 09:24 | ED.NURSE ---
Will do re-assessment with DEC after calling multiple in-patient facilities who are unable to accept patient due to too high acuity, or not high enough acuity.
--- NOTE | 2023-07-11 11:13 | ED.NURSE ---
DEC did reassess patient to aide in placement decision. Awaiting call back for specific.
--- NOTE | 2023-07-11 13:00 | ED.NURSE ---
Patient accepted offer of lunch. Ate well.
--- NOTE | 2023-07-11 13:27 | PC.SOCIAL ---
Addendum entered by KAVYA Gabriel 07/11/23 16:16: Updates from the following facilities for possible placement. 1. [facility] ([place])- Received a phone call from Chinyere in admissions at [phone]. Pt was declined for admission due to being too high acuity. 2. [facility] ([place])- Per DEC reassessment on 07/11 DEC states that [facility] would reassess pt. Phone call to admissions at [facility]. Discussed DEC re-assessment and findings and was informed that they would NOT reconsider pt and will not accept due to not meeting criteria (too low acuity). 3. [facility]- Phone call to central intake at [phone]. There are openings in [place] and [place]. Discussed pt's current situation. Pt is too high acuity for [place] sites due to being shared rooms and with pt having delusions they feel it is not appropriate for pt to share a room. [facility] informs staff can call back tonight and tomorrow to see if there are openings at other sites. 4. [facility] ([place])- Phone call to Chapis in intake at [phone]. Provided updated DEC assessment. Due to new reported CPS concerns pt is too high acuity for [facility] and they are declining. 5. [facility] ([place])- Follow up phone call to admissions at [phone]. They have pt on waitlist to screen, pending their staffing. Provided phone number to Emergency Department to call with any updates. 6. [facility] ([place])- Follow up phone call to admissions at [phone] and spoke to Lloyd. Informed that they are still reviewing referrals and PM shift will continue to review. Provided phone number to Emergency Department to call with any updates. Original Note: Made phone calls to the following facilities to locate a behavioral health inpatient opening. 1. [facility] in [place]- Phone call to Chinyere in admissions at [phone]. There are openings, however, they may not be able to meet needs. They are willing to assess. Faxed referral to [phone]. 2. [facility] ([place])- Phone call to admissions at [phone]. There is an opening and they will assess. Faxed referral to [phone]. Received a phone call back informing that the pt is too high acuity and they are declining pt for admission. 3. [facility] ([place])- Phone call to admissions at [phone]. There is an opening in [place]. [facility] would like to assess to see if they can meet pt's needs. Faxed referral to [phone] Attn: Chapis. 4. [facility] ([place])- Phone call to admissions at [phone]. They have an opening. Completed initial intake over phone as the team is currently screening new potential admits. 5. [facility] ([place])- Phone call to admissions at [phone] and spoke to Lloyd. There are openings and they will assess. Faxed referral to [phone]. 6. [facility]- Phone call to admissions at [phone]. The program only takes pt up to 26 years old. 7. [facility] ([facility] openings)- Phone call to central intake at [phone]. There are no openings in the [facility]. 8. [facility]- Phone call to admissions at [phone]. Pt is too high acuity for facility. 9. [facility]- Phone call to central intake at [phone]. Spoke to Chapis and was informed [facility] has an opening and they will assess. Faxed referral to [phone]. 10. [facility] [place]- Phone call to admissions at [phone]. There are no openings. 11. [facility]- Phone call to admissions at [phone]. There are no openings. 12. [facility] Central intake ([place], [place], [place], [place], [place])- Phone call to admissions at [phone]. There are no openings at any of the campuses. Social work will continue to follow up as needed.
--- NOTE | 2023-07-11 14:02 | ED.NURSE ---
Patient's mom is here to visit. Two appear to be conversing peacefully in room. Some items were brought in for patient including pants and sweaters without ties and a bible.
--- NOTE | 2023-07-11 14:17 | ED.NURSE ---
Patient's belonging inventoried. Her mom has left. She reports that patient believes that staff record her with a video camera when the lights are on. That we are writing down everything she says to use against her and that she feels that she needs a vice president of brand management.
--- NOTE | 2023-07-11 15:46 | PC.SOCIAL ---
Social Work: Called the [facility] Mold Operator, Parminder Jessy [phone] to ask for more information on the denial for admission. She will look into it and get back to the hospital with more details on why this patient does not meet criteria for admission to their facility. smooth and burr worker composites to follow up with her as needed.
--- NOTE | 2023-07-11 19:04 | ED.NURSE ---
Report from HELENA Barr. I will now assume care of patient. She is sitting in a chair at bedside reading a bible. Offered salad/drinks, patient declines. She denies needs at present. Video monitoring in place, security in department.
--- NOTE | 2023-07-11 20:57 | ED.NURSE ---
Dr. Diaz in with patient.
--- NOTE | 2023-07-11 22:53 | ED.NURSE ---
Patient eating salad, fruit.
--- NOTE | 2023-07-11 23:14 | ED.NURSE ---
Patient up to restroom ambulatory.
[2023-07-12 11:48] VITALS: BP 113/90; PULSE 96; RESP 16; TEMP 36.9; O2SAT 98
--- NOTE | 2023-07-12 12:06 | ED.NURSE ---
Pt did eat breakfast and showered independently. Pt has pleasant cooperative demeanor.
--- NOTE | 2023-07-12 19:11 | ED.NURSE ---
Called DEC to explain no hospitals are willing to waitlist or accept patient. Looking for placement recommendations as [facility] has exhausted all possibilities and patient is not receiving needed psychiatric care.
--- NOTE | 2023-07-12 19:12 | ED.NURSE ---
pt given meal. expressed thanks.
--- NOTE | 2023-07-12 20:06 | ED.NURSE ---
Pt has been cooperative with cares, did eat meal this evening. Director Of Collections And Archives made calls today to [facility], [facility], [facility], [facility], [facility], [facility], and [facility]. Systems were either full or Pt was declined admission today. Currently awaiting call back from [facility]. Plan to move Pt to med surg room for comfort if not accepted tonight at outside facility.
--- NOTE | 2023-07-13 00:15 | ED.NURSE ---
patient going to 243. report given to balaji MALIK
[2023-07-13 00:35] VITALS: BP 113/74; PULSE 89; RESP 15; TEMP 36.8; O2SAT 97; BMI 21.9
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
[2023-07-13 08:10] VITALS: BP 124/94; PULSE 94; RESP 18; TEMP 36.7; O2SAT 97
--- NOTE | 2023-07-13 16:43 | PM.IMPN1 ---
Progress Note: A&P Assessment and plan (1) Major depression with psychotic features: Problem details: -pt resistant to venipuncture, labs, medications. minimal insight. paranoia/suspicious/tangential thinking. -needs inpatient psychiatry evaluation. Not functioning well in current family system. Not independent in adulting (bills, income, previous tasks like homeschooling were falling apart, meals even falling short of adequate nutrition) Status: Acute (2) Acute psychosis: Problem details: -as above. offerred patient Haldol 2.5mg scheduled BID. pt declined. Status: Acute (3) Lactose intolerance in adult: Status: Acute Subjective Date Seen: 07/13/23 Interval history: Daily Progress Note - Hospital Medicine Day #: 1 (admitted from ED earlier this day). s/p >48 hours in the ED CC: acute paranoia, major depression OVERNIGHT UPDATES FROM STAFF & MED, LAB, IMAGING UPDATES spent most of the day quiet in the bedside chair. wanted shades drawn. no TV. No cell phone use. Reading bible. no obvious agitation. quiet. Objective: well kept. Vitals: see above Lungs: Clear. Cardiac: S1S2. Neuro: no abnl movements. normal conversation tone, eye contact, and enunciation. unusual pauses. tangential thoughts. guarded. suspicious. no direct answers. Disposition/Potential discharge - Likely to return to previous living situation. Today I spent 50minutes seeing the patient, reviewing Expanse and EPIC notes/diagnostics, discussing the care plan with our care time that includes social work, PT/OT, pharmacy, RT, senior living and documenting my impressions and plan in the medical record. I then spent an hour on the phone with her mother gathering collateral information. -increasing paranoia and isolation over the last 12-18 months. Did not work outside home, homeschooled her children, stopped driving, ordered groceries but very regimented. left the family home, she didn't tell her parents. lease was up in 12/05 - without plans made. family moved her and children into the their home. The grandparents took over basic parenting duties - enrolling in school, clothes, groceries. -Shakira spent her days in her dark bedroom, -attended unusual holiness service - watched assigned youtube videos despite other times thinking she was being monitored. -felt she was being tracked, monitored, recorded. -suspicious of food additives, crowds, public and charter schools -control and regimented diet -no drug or alcohol use -rare agitation but happening more in the last few weeks. emotional lability with parents. no self harm noted. -no previous diagnosis, medications, therapy. normal childhood. maybe a little different as an adult - no care, no vaccines, health conscious however. Prolonged Physician Services [id number] ([facility]) in conjunction with: [id number] (subsequent visit; 50 mins + 60 mins prolonged services = 110 mins total) Exam Const: Vital Signs, click to edit/add: Vital Signs - 24 hr 07/13/23 00:35 07/13/23 00:35 07/13/23 08:10 Temperature 98.3 F 98.0 F Pulse Rate [Right Pulse Oximeter] 89 94 Respiratory Rate 15 15 18 Blood Pressure [Le ft Arm] 113/74 124/94 H Pulse Oximetry 97 97 97 Oxygen Delivery Me thod Room Air Room Air Room Air
--- NOTE | 2023-07-13 18:29 | PC.NURSE ---
Patient has been calm and cooperative throughout shift.
[2023-07-13 23:00] VITALS: RESP 18
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
[2023-07-14] MEDS: BENZOCAINE/MENTHOL 1 EACH LOZENGE MUCOUS MEM (06:56)
[2023-07-14 09:00] VITALS: BP 106/72; PULSE 86; RESP 16; TEMP 36.4; O2SAT 100
--- NOTE | 2023-07-14 12:28 | PC.SOCIAL ---
Addendum entered by JONATHAN Lemus 07/15/23 11:38: Received message from [facility] stating they can not accept. Left message for [facility] requesting update on results of assessment for admission. Addendum entered by JONATHAN Lemus 07/14/23 13:53: Received call back from [facility] stating they are refusing admission due to pt requiring a higher level of acuity than they can provide. Message stated that pt's initial documentation of aggression was considered in this decision and that with a longer stay in the hospital without aggressive behavior does not change the decision on admit. Original Note: Discharge planning: Called the following facilities regarding in-pt mental health placement with the listed results: 1. [facility] facilities - no beds available in the state. Can call back after 2:00 [phone]. 2. [facility] - On waiting list for 24 hours. Call back to add to waiting list tomorrow if still not placed [phone]. 3. [facility] - No beds in [facility] area but can call individual facilities regarding bed availability outside of [facility]. 4. [facility] - has declined twice due to acuity but they will call back to reassess if a bed opens up as pt has been at the hospital for several days with no aggression. 5. [facility] [place] [facility] - full for today. 6. [facility] - full for today. 7. [facility] - full for today. 8. [facility] - faxed information and awaiting call back with decision on admit. 9. [facility] - full for today. 10. [facility] - faxed information and awaiting call back with decision on admit. 11. [facility] - faxed information and awaiting call back with decision on admit. 12. [facility] has refused to reassess as they have declined pt on Friday. body and fender worker to follow up as needed.
[2023-07-14 15:00] VITALS: RESP 16
--- NOTE | 2023-07-14 17:16 | P.IMPN_ITS ---
Progress Note: A&P Assessment and plan (1) Major depression with psychotic features: Problem details: -pt resistant to venipuncture, labs, medications. minimal insight. paranoia/suspicious/tangential thinking. -needs inpatient psychiatry evaluation. Not functioning well in current family system. Not independent in adulting (bills, income, previous tasks like homeschooling were falling apart, meals even falling short of adequate nutrition) -increasing paranoia limiting contact with the outside world Status: Acute (2) Acute psychosis: Problem details: -as above. offerred patient Haldol 2.5mg scheduled BID. pt declined. -pt did score 29/30 on MOCA. refusing follow-up Telehealth evaluation. They have previously recommended inpatient treatment. -will continue to offer medication, acute inpatient care -would recommend commitment process be initiated 07/15 Status: Acute (3) Lactose intolerance in adult: Status: Acute Subjective Date Seen: 07/14/23 Interval history: Daily Progress Note - Hospital Medicine Day #: 2 (admitted from ED earlier this day). s/p >48 hours in the ED CC: acute paranoia, major depression OVERNIGHT UPDATES FROM STAFF & MED, LAB, IMAGING UPDATES spent most of the day quiet in the bedside chair. wanted shades drawn. no TV. No cell phone use. Reading bible. no obvious agitation. quiet. Our conversation this afternoon went about the same. no concrete thoughts. does not complete sentences well. speaks in generalities often referring to things and you know, we need research and well, there are things to do Objective: well kept. Vitals: see above Lungs: Clear. Cardiac: S1S2. Neuro: no abnl movements. normal conversation tone, eye contact, and enunciation. unusual pauses. tangential thoughts. guarded. suspicious. no direct answers. Disposition/Potential discharge - Likely to pursue commitment secondary to acute paranoia/psychosis likely secondary to major depressive disorder. Today I spent 50minutes seeing the patient, reviewing Expanse and EPIC notes/diagnostics, discussing the care plan with our care time that includes social work, PT/OT, pharmacy, RT, correction and documenting my impressions and plan in the medical record. I then spent another hour on the phone with her mother and father gathering collateral information. -ludin previous to hospitalization was no longer driving, no longer organized enough to fulfil parenting duties (meal planning, shopping, bathing). She would take both kids into her bed and dark bedroom and lock the bedroom door -isolative behavior -suspicious of wall art, radios, antennas, phones -no previous diagnosis, medications, therapy. normal childhood. maybe a little different as an adult - no care, no vaccines, health conscious however. Prolonged Physician Services [id number] ([facility]) in conjunction with: [id number] (subsequent visit; 50 mins + 60 mins prolonged services = 110 mins total) Exam Const: Vital Signs, click to edit/add: Vital Signs - 24 hr 07/13/23 23:00 07/14/23 09:00 Temperature 97.6 F Pulse Rate [Right Pulse Oximeter] 86 Respiratory Rate 18 16 Blood Pressure [Le ft Arm] 106/72 Pulse Oximetry 100 Oxygen Delivery Me thod Room Air
--- NOTE | 2023-07-14 18:47 | PC.NURSE ---
End of shift note- Pt soft-spoken and reserved, but cooperative and appropriate. Independent in room with 1:1 sitter, tolerated well. Pt observed reading and sitting quietly in room during shift.
--- NOTE | 2023-07-15 06:41 | PC.NURSE ---
Shift note -: Pt 1:1 with a sitter all shift. Pt up most of the night, switching between the recliner and the bed. Denies pain. Up independent in room. Pt refused weight again this AM. Pleasant, denies suicidal ideation.
[2023-07-15 08:00] VITALS: BP 101/71; PULSE 75; RESP 16; TEMP 36.6; O2SAT 99
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
--- NOTE | 2023-07-15 16:26 | P.DS_ITS ---
DS: Providers Provider Date Seen: 07/15/23 Date of admission: 07/13/23 00:17 Primary care physician: Not a Local Provider Admitting Clinician: Anahi Wood MD Attending Physician on discharge: Anahi Wood MD Date of Discharge: 07/15/23 DS: Diagnosis Discharge Diagnosis (1) Major depression with psychotic features: Status: Acute Problem details: -pt resistant to venipuncture, labs, medications. minimal insight. paranoia/suspicious/tangential thinking. -needs inpatient psychiatry evaluation. Not functioning well in current family system. Not independent in adulting (bills, income, previous tasks like homeschooling were falling apart, meals even falling short of adequate nutrition) -increasing paranoia limiting contact with the outside world - Patient remained calm without aggressive behaviors during hospitalization. Continues to exhibit suspicious, paranoid thinking, evasive in conversation. (2) Acute psychosis: Status: Acute Problem details: -as above. offerred patient Haldol 2.5mg scheduled BID. pt declined. -pt did score 29/30 on MOCA. refusing follow-up Telehealth evaluation. They have previously recommended inpatient treatment. -will continue to offer medication, acute inpatient care -would recommend commitment process be initiated 07/15 DS: Summary Hospital Course Hospital Course: [age] year old female without significant past medical history was admitted to the medical floor for concern of acute psychosis, paranoid suspicious thinking. Course of care and details as noted above. Patient's 72 hour hold on 07/15/2023 at 5:52 p.m.. At that time, and during the course of her hospital stay, patient denied acute active homicidal or suicidal ideation. She displayed no aggressive behaviors and was cooperative other than refusing further lab or imaging diagnostics for workup. According to [place] statue, a person held under a 72 hour emergency hold must be released by the facility within [address] order to hold the person is obtained. Appropriate paperwork was completed and submitted but a court order was not obtained in the appropriate time. The patient was discharged, encouraged to return to her parents home with her parents and children. IT IS STRONGLY RECOMMENDED THAT THE PATIENT SEEK OUTPATIENT EVALUATION. ADDITIONALLY, SHE WAS PROVIDED OXANA MEREDITH MACIAS NAME AND PHONE NUMBER. PATIENT WAS ENCOURAGED TO SEEK EMERGENCY CARE IF NEW OR WORSENING SYMPTOMS OR RECOMMENDED TO DO SO BY FRIENDS OR FAMILY ISSUES. Status at Discharge Overall status at discharge: other Time Spent with Patient Time attestation: Total time spent providing and/or coordinating discharge services: Time spent: Greater than 30 minutes Exam Narrative: Exam Narrative: PHYSICAL EXAM General: cooperative,generally conversant, NAD HEENT: Normocephalic, atraumatic, sclera white, EOMI, oral mucosa moist Cardiovascular: RRR Pulmonary:No dyspnea Neurological: Alert, appropriate eye contact, evasive, suspicious, poor insight Const: Vital Signs, click to edit/add: Vital Signs - 24 hr 07/15/23 08:00 Temperature 97.9 F Pulse Rate [Right Pulse Oximeter] 75 Respiratory Rate 16 Blood Pressure [Le ft Arm] 101/71 Pulse Oximetry 99 Oxygen Delivery Me thod Room Air Discharge Plan Discharge Disposition: Home, Self-Care Date of Admission: 07/13/23 00:17 Attending Provider on Discharge: Enedelia Capellan Primary Care Provider: Provider,Not a Local Condition: Stable Anticipated Discharge Date/Time: 07/15/23 18:00 Discharge Medications: No Action No Known Home Medications Discharge Orders: Discharge Order (Routine); Ordered 07/15/23 Ordered By: Enedelia Capellan Patient Education: Psychotic Disorder (GEN) Additional Instructions: Your 72 hour hold has so legally you are allowed to leave the hospital. We, your care team, strongly recommend outpatient follow-up for further psychiatric evaluation and management. An inpatient hospital stay may be appropriate for you. In the meantime, it is recommended you see Warren Macias, for an initial evaluation. It is important you work with your family to provide a safe environment. If any new or worsening symptoms arise, you should seek immediate medical evaluation. Activity Level: No Restrictions Discharge Diet: Regular Follow Up Appointments: Warren Macias [Other] Provider,Not a Local [Primary Care Provider] - Forms: [employer] Info Instructions
--- NOTE | 2023-07-15 16:34 | PC.SOCIAL ---
Social work: Initial call placed to [facility] Vulnerable adult requesting form for Commitment at 11:55am. Spoke with Chencho who faxed forms for [facility] Commitment. mental health social worker faxed requested documentation of MD notes and Mental Health assessment reports to [facility]. Received call from Valdo at [facility] [phone] who explained the process and stated the fax was not received and requested the Medical reports be secure emailed to her. Josefinanity stated that it may be too late in the day to get court documentation to hold pt at the hospital past the 72 hour hold, which expires today at 17:52. Secure emailed packet of MD reports, DEC mental health assessment and completed Physician statement in support of commitment to [facility]. Later, secure emailed the completed Petition for Judicial Commitment and Exhibit A. Received call from Serenity stating she has contacted mother to discuss concerns and plan in case pt leaves the hospital today. Received call from pt's mother, requesting information on the commitment process and discharge plan. Informed mother information can not be provided. Mother requested the [facility] mental health crisis line phone number which was provided to her.
--- NOTE | 2023-07-15 17:32 | PC.SOCIAL ---
Social work: Vulnerable Adult report completed due to pt's sharing plan to leave the hospital when the 72 hour hold expires at 17:52. Report #[id number]. Received call from Cerenity at [facility] stating they are unable to get anything from court today to hold pt past the 72 hour hold expiring. She has spoken with parents who are on their way to pick her up at the hospital. RN to follow up with pt regarding discharge when hold expires if she insists on leaving.
--- NOTE | 2023-07-15 18:42 | PC.NURSE ---
Pt alert and oriented. VSS. Pt had 1:1 during first eight hours of shift. Pt had no complaints of pain. Discharge instructions reviewed with Pt. Rail Car Driver asked Pt if she was okay with her parents taking her home as [facility] corrections caseworker has called them. Pt stated this was okay. After paperwork was completed, Pt stated she was going to leave the unit and go wait for parents. Rail Car Driver explained that Pt?s parents know where to find her on the unit. Pt insisted on leaving unit to wait for them.?
--- NOTE | 2023-07-17 12:08 | PC.SOCIAL ---
Social work: Received Commitment disposition letter from [facility] stating the request for commitment is not supported by the screening team at this time.
--- NOTE | 2023-07-17 12:10 | PC.APCO ---
Social work note: Vulnerable adult report was submitted through [facility] on 07/15/23 due to pt planning to leave the hospital when 72 hour hold expires. In-pt mental health treatment is what is being recommended for her and an available in-pt mental health bed was not located for her prior to the hold expiring. Pt is considered vulnerable due to her mental illness and current depression and psychosis. Received call from Lai at [facility] on 07/17/23 requesting additional information on the report. Answered Lai's questions.
== END 2023-07-15 18:05 | disposition home or self-care (01) ==
LOC: ED 07-13 00:31 → MEDSURG 07-13 07:35
PROVIDERS: Family Medicine; Admitting Provider Family Medicine; Emergency Provider Emergency Medicine; Visit Provider Family Medicine
DX: F23 Brief psychotic disorder (principal); F32.3 Major depressive disorder, single episode, severe with psychotic features; F60.0 Paranoid personality disorder; E73.9 Lactose intolerance, unspecified
CPT/HCPCS: 36415; 80048; 80076; 80143; 80179; 80306; 81001; 81025; 82077; 84443; 85025; 87086; 87635; 99284; 99285; A9270; G0378